=== PATIENT | male | born 1980 | race Caucasian/White ===

== ENCOUNTER 2016-10-03 12:52 | Emergency (ER) | payer OTHER ==
[2016-10-03] MEDS ORDERED: ONDANSETRON 4MG/2ML VIAL (J2405) As Ordered ONE (13:14)
[2016-10-03 13:58] LABS: ALBUMIN 4.3 GM/DL (3.2-5.2); ALBUMIN/GLOBULIN RATIO 1.13 (1.00-1.93); ALKALINE PHOSPHATASE 97 U/L (45-117); ALT/SGPT 40 U/L (12-78); ANION GAP 9 MEQ/L (8-16); AST/SGOT 19 U/L (15-37); BILIRUBIN,DIRECT 0.1 MG/DL (0.0-0.2); BILIRUBIN,TOTAL 0.6 MG/DL (0.2-1.0); BLOOD UREA NITROGEN 24 MG/DL (7-18); CALCIUM LEVEL 8.9 MG/DL (8.5-10.1); CARBON DIOXIDE LEVEL 26 MEQ/L (21-32); CHLORIDE LEVEL 107 MEQ/L (98-107); GLOMERULAR FILTRATION RATE > 60.0 (>60); GLUCOSE, FASTING 105 MG/DL (70-105); POTASSIUM SERUM 4.3 MEQ/L (3.5-5.1); SODIUM LEVEL 142 MEQ/L (136-145); TOTAL PROTEIN 8.1 GM/DL (6.4-8.2)
[2016-10-03 14:16] LABS: BASO % 0.1 % (0.0-1.0); EOS # 0.1 K/mm3 (0.0-0.50); EOS % 1.1 % (0.0-3.0); LARGE UNSTAINED CELL # 0.1 K/mm3 (0.0-0.4); LARGE UNSTAINED CELL % 0.5 % (0.0-4.0); LYMPH # 0.6 K/mm3 (1.5-4.5); LYMPH % 4.5 % (24.0-44.0); MEAN CORPUSCULAR HEMOGLOBIN 33.3 pg (27.0-33.0); MEAN CORPUSCULAR HGB CONC 34.2 g/dl (32.0-36.5); MEAN CORPUSCULAR VOLUME 97.4 fl (80.0-96.0); MONO # 0.6 K/mm3 (0.0-0.8); NEUTROPHILS # 10.7 K/mm3 (1.8-7.7); NEUTROPHILS % 88.8 % (36.0-66.0); PLATELET COUNT, AUTOMATED 221 k/mm3 (150-450); RED CELL DISTRIBUTION WIDTH 12.1 % (11.5-14.5)
[2016-10-03] MEDS ORDERED: ISOVUE-370 76% 100ML VIAL (Q9967) As Ordered ONE (15:01)
--- NOTE | 2016-10-03 15:30 | REP ---
Clinical: Abdominal pain. Technique: Axial contrast enhanced images from the lung bases to the pubic symphysis using 100 ml Isovue 370 intravenous contrast material with coronal and sagittal re-formations. Findings: Lung bases clear. Visualized heart and pericardium normal. Liver, spleen, pancreas, gallbladder, bilateral adrenal glands and kidneys are normal. The enteric system is without obstruction or definite acute inflammatory process. Mild fluid-filled loops of small bowel and ascending colon may reflect a mild enterocolitis. Pelvis demonstrates normal bladder and age appropriate prostate/seminal vesicles. No ascites. Small fat containing inguinal hernias noted. No adenopathy. Vasculature normal. Surrounding musculoskeletal structures intact. Impression: Cannot exclude mild enterocolitis. Small fat containing inguinal hernias. Signed by Yon Kathleen MD 10/03/2016 03:21 P
--- NOTE | 2016-10-03 16:24 | EDDOCDS ---
Physician Documentation [facility] Name: Ramirez Winston Age: 36 yrs Sex: Male : 1980 Arrival Date: 10/03/2016 Time: 12:52 Bed I8 / 16 Private MD: Disposition: 10/03/16 16:07 Discharged to Home/Self Care. Impression: Nausea and vomiting. - Condition is Stable. - Discharge Instructions: Nausea and Vomiting. - Prescriptions for ZOFRAN ODT 4 mg - dissolve 1 tablet by ORAL route 4 times per day As needed do not chew, do not swallow whole; 10 tablet. - Medication Reconciliation, Local Pharmacy Hours form. - Follow up: COLTON Morrell; When: 1 - 2 days; Reason: Recheck today's complaints. - Problem is new. - Symptoms have improved. - Notes: You were seen in the ED for nausea and vomiting. Bloodwork showed no acute findings. CT scan showed possible enterocolitis and small inguinal hernias but no other acute abnormalilities. You were treated and improved with IV fluids and medications. As you are feeling better you may return home. Continue to encourage clear liquids. You may take Zofran as needed for nausea. Advance your diet as tolerated, and call your primary doctor at [facility] to arrange to be seen tomorrow for a recheck. Return to the ED for any worsening abdominal pain, fever, inability to tolerate oral foods or liquids or any other concerns. Historical: - Allergies: no known allergies; - Home Meds: 1. none - PMHx: none; - PSHx: none; - Social history: Smoking status: Patient states was never smoker of tobacco. Patient/guardian denies using alcohol, street drugs, No barriers to communication noted, The patient speaks fluent Maltese, Speaks appropriately for age. - Family history: Not pertinent. - : The pt / caregiver states he / she is not on anticoagulants. Home medication list is obtained from the patient. - Exposure Risk Screening:: None identified. Vital Signs: 10/03 12:54 BP 146 / 69; Pulse 89; Resp 16; Temp 98.2(O); Pulse Ox 100% on R/A; Weight 97.52 kg / lr2 214.99 lbs (R); Height 6 ft. 2 in. (187.96 cm) (R); Pain 5/10; 16:22 BP 126 / 78; Pulse 78; Resp 18; Temp 98(T); Pulse Ox 99% on R/A; Pain 0/10; rs3 12:54 Body Mass Index 27.60 (97.52 kg, 187.96 cm) lr2 MDM: 13:12 IV Saline Lock ordered. br1 13:12 NS 0.9% 1000 ml IV at bolus once ordered. br1 13:12 Ondansetron 4 mg IVP once ordered. br1 13:14 CBC with Diff Ordered. EDMS 13:14 BMP Ordered. EDMS 13:14 Liver Profile Ordered. EDMS 13:14 Lipase Ordered. EDMS 14:38 CBC with Diff Reviewed. br1 14:38 BMP Reviewed. br1 14:38 Liver Profile Reviewed. br1 14:38 Lipase Reviewed. br1 14:40 CT ABD & PELVIS: IV Contrast Only Ordered. EDMS 15:01 NS 0.9% 1000 ml IV at bolus once ordered. br1 15:24 Fluid Challenge ordered. br1 16:16 Financial registration complete. zo 16:17 [facility] Payment Agreement was scanned into [employer] and attached to record. zo Administered Medications: 13:29 Drug: NS 0.9% 1000 ml [sodium chloride 0.9 % intravenous solution] Route: IV; Rate: jjr bolus; Site: left antecubital; 14:30 Follow up: IV Status: Completed infusion; IV Intake: 1000ml jjr 15:26 Follow up: IV Status: Completed infusion rs3 13:29 Drug: Ondansetron 4 mg [ondansetron HCl 2 mg/mL intravenous solution (2 mL)] Route: jjr IVP; Site: left antecubital; 15:26 Drug: NS 0.9% 1000 ml [sodium chloride 0.9 % intravenous solution] Route: IV; Rate: rs3 bolus; Site: left antecubital; Signatures: Dispatcher [employer] EDMS Fred Velasco Brian, MD MD br1 Flower Caldera RN RN rs3 Cheryl Howard RN RN ttb Jaky You RN jjr The chart was reviewed and I authenticate all verbal orders and agree with the evaluation and treatment provided.Attachments: 16:17 [facility] Payment Agreement zo MTDD
--- NOTE | 2016-10-03 16:24 | EDDOCDS ---
Nurse's Notes [facility] Name: Ramirez Winston Age: 36 yrs Sex: Male : 1980 Arrival Date: 10/03/2016 Time: 12:52 Bed I8 / 16 Private MD: Diagnosis: Nausea and vomiting Presentation: 10/03 12:57 Presenting complaint: Patient states: abd cramping, n/v/d x3 hours. Adult Sepsis ttb Screening: The patient does not have new or worsening altered mentation. Patient's respiratory rate is less than 22. Systolic blood pressure is greater than 100. Patient has a qSOFA score of 0- Negative Sepsis Screen. Suicide/Homicide risk assessment- the patient denies having any suicidal and/or homicidal ideations and does not present with any other emotional, behavioral or mental health complaints. 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 Transition of care: patient was not received from another setting of care. 12:57 Acuity: KRISTY Level 3 ttb 12:57 Method Of Arrival: Walkin/Carried/Asstd ttb Triage Assessment: 12:58 General: Appears uncomfortable, well nourished, Behavior is anxious, appropriate for ttb age, cooperative, pleasant, restless. Pain: Location: abd cramping 8/10. HIV screening NA for this visit Offered previously. Neurological: Level of Consciousness is awake, alert. Cardiovascular: Chest pain is denied. Respiratory: No deficits noted. GI: Reports cramping, diarrhea, lower abdominal pain, upper abd pain, nausea, vomiting. Derm: Skin is normal. Injury Description: No known injury. Historical: - Allergies: no known allergies; - Home Meds: 1. none - PMHx: none; - PSHx: none; - Social history: Smoking status: Patient states was never smoker of tobacco. Patient/guardian denies using alcohol, street drugs, No barriers to communication noted, The patient speaks fluent Tristanian, Speaks appropriately for age. - Family history: Not pertinent. - : The pt / caregiver states he / she is not on anticoagulants. Home medication list is obtained from the patient. - Exposure Risk Screening:: None identified. Screenin:31 Screening information is obtained from the patient. Fall risk: No risks identified. jjr Assistance ADL's: requires no assistance with activities of daily living. Abuse/DV Screen: The patient / caregiver reports he/she is: not in a situation that causes fear, pain or injury. Nutritional screening: No deficits noted. Advance Directives: There is no active DNR order. home support is adequate. Assessment: 13:30 General: Appears uncomfortable, well nourished, well groomed, Behavior is appropriate jjr for age. Pain: Location: abdomen Quality of pain is described as crampy. Neurological: No deficits noted. Respiratory: No deficits noted. GI: Abdomen is non- distended Bowel sounds present X 4 quads. Abd is soft X 4 quads Reports cramping, nausea, vomiting. Derm: Skin is dry, Skin is pale, Skin temperature is warm. 13:31 General: pt actively dry heaving on arrival to treatment room. jjr 14:21 General: Appears in no apparent distress, comfortable, Behavior is appropriate for age, dy cooperative, RESTING ON STRETCHER WITH EYES CLOSED. . 15:27 General: Appears in no apparent distress, Behavior is appropriate for age, cooperative, rs3 returned from CT. tolerated well. denies of nausea/vomiting. family at bedside. 2nd IVF NS bolus started. 16:20 Reassessment: Patient appears in no apparent distress at this time. Patient denies pain rs3 at this time. Patient states feeling better. Patient states symptoms have improved. Vital Signs: 12:54 BP 146 / 69; Pulse 89; Resp 16; Temp 98.2(O); Pulse Ox 100% on R/A; Weight 97.52 kg lr2 (R); Height 6 ft. 2 in. (187.96 cm) (R); Pain 5/10; 16:22 BP 126 / 78; Pulse 78; Resp 18; Temp 98(T); Pulse Ox 99% on R/A; Pain 0/10; rs3 12:54 Body Mass Index 27.60 (97.52 kg, 187.96 cm) lr2 Vitals: 12:54 Log In Time: October 03, 2016 at 12:52. lr2 ED Course: 12:53 Patient visited by Mayi Fuentes. lr2 12:53 Patient moved to Waiting lr2 12:55 Patient moved to Pre RCE lr2 12:57 Triage Initiated ttb 12:59 Patient visited by Cheryl Howard RN. ttb 13:03 Jeffry Fernandez MD is Attending Physician. br1 13:03 Patient moved to I9 / 22 mlb1 13:05 Patient moved to I8 / 16 mlb1 13:11 Patient visited by Jeffry Fernandez MD. br1 13:29 Lipase Sent. jjr 13:29 Liver Profile Sent. jjr 13:29 BMP Sent. jjr 13:30 CBC with Diff Sent. jjr 13:31 The patient / caregiver is instructed regarding the plan of care and ED course. jjr 13:31 Inserted saline lock: 20 gauge in left antecubital area and blood collected. Labs jjr drawn. (by ED staff). Sent per order to lab. 13:32 Patient visited by Jaky You, RN. jjr 14:21 Patient visited by Timi Lopez, RN. dy 15:27 Patient visited by Flower Caldera,CHRISTINE. rs3 15:57 Patient visited by Jeffry Fernandez MD. br1 16:03 CT ABD & PELVIS: IV Contrast Only Returned. EDMS 16:06 [facility] [place] Physician. br1 16:17 [facility] Payment Agreement was scanned into [employer] and attached to record. zo 16:20 Discontinued lock bleeding controlled, pressure dressing applied, No redness/swelling rs3 at site. No procedures done that require assistance. Administered Medications: 13:29 Drug: NS 0.9% 1000 ml [sodium chloride 0.9 % intravenous solution] Route: IV; Rate: jjr bolus; Site: left antecubital; 14:30 Follow up: IV Status: Completed infusion; IV Intake: 1000ml jjr 15:26 Follow up: IV Status: Completed infusion rs3 13:29 Drug: Ondansetron 4 mg [ondansetron HCl 2 mg/mL intravenous solution (2 mL)] Route: jjr IVP; Site: left antecubital; 15:26 Drug: NS 0.9% 1000 ml [sodium chloride 0.9 % intravenous solution] Route: IV; Rate: rs3 bolus; Site: left antecubital; Intake: 14:30 IV: 1000.00ml; Total: 1000.00ml. jjr Order Results: Lab Order: CBC with Diff; SPEC'M 10/03/16 13:26 Test: WHITE BLOOD COUNT; Value: 12.0; Range: 4.0-10.0; Abnormal: Above high normal; Units: K/mm3; Status: F Test: RED BLOOD COUNT; Value: 4.98; Range: 4.30-6.10; Units: M/mm3; Status: F Test: HEMOGLOBIN; Value: 16.6; Range: 14.0-18.0; Units: g/dl; Status: F Test: HEMATOCRIT; Value: 48.5; Range: 42.0-52.0; Units: %; Status: F Test: MEAN CORPUSCULAR VOLUME; Value: 97.4; Range: 80.0-96.0; Abnormal: Above high normal; Units: fl; Status: F Test: MEAN CORPUSCULAR HEMOGLOBIN; Value: 33.3; Range: 27.0-33.0; Abnormal: Above high normal; Units: pg; Status: F Test: MEAN CORPUSCULAR HGB CONC; Value: 34.2; Range: 32.0-36.5; Units: g/dl; Status: F Test: RED CELL DISTRIBUTION WIDTH; Value: 12.1; Range: 11.5-14.5; Units: %; Status: F Test: PLATELET COUNT, AUTOMATED; Value: 221; Range: 150-450; Units: k/mm3; Status: F Test: NEUTROPHILS %; Value: 88.8; Range: 36.0-66.0; Abnormal: Above high normal; Units: %; Status: F Test: LYMPH %; Value: 4.5; Range: 24.0-44.0; Abnormal: Below low normal; Units: %; Status: F Test: MONO %; Value: 5.0; Range: 0.0-5.0; Units: %; Status: F Test: EOS %; Value: 1.1; Range: 0.0-3.0; Units: %; Status: F Test: BASO %; Value: 0.1; Range: 0.0-1.0; Units: %; Status: F Test: LARGE UNSTAINED CELL %; Value: 0.5; Range: 0.0-4.0; Units: %; Status: F Test: NEUTROPHILS #; Value: 10.7; Range: 1.8-7.7; Abnormal: Above high normal; Units: K/mm3; Status: F Test: LYMPH #; Value: 0.6; Range: 1.5-4.5; Abnormal: Below low normal; Units: K/mm3; Status: F Test: MONO #; Value: 0.6; Range: 0.0-0.8; Units: K/mm3; Status: F Test: EOS #; Value: 0.1; Range: 0.0-0.50; Units: K/mm3; Status: F Test: BASO #; Value: 0.0; Range: 0.0-0.2; Units: K/mm3; Status: F Test: LARGE UNSTAINED CELL #; Value: 0.1; Range: 0.0-0.4; Units: K/mm3; Status: F Lab Order: [facility]; SPEC'M 10/03/16 13:26 Test: GLUCOSE, FASTING; Value: 105; Range: 70-105; Units: MG/DL; Status: F Test: BLOOD UREA NITROGEN; Value: 24; Range: 7-18; Abnormal: Above high normal; Units: MG/DL; Status: F Test: CREATININE FOR GFR; Value: 1.20; Range: 0.70-1.30; Units: MG/DL; Status: F Test: GLOMERULAR FILTRATION RATE; Value: > 60.0; Range: >60; Status: F Test: SODIUM LEVEL; Value: 142; Range: 136-145; Units: MEQ/L; Status: F Test: POTASSIUM SERUM; Value: 4.3; Range: 3.5-5.1; Units: MEQ/L; Status: F Test: CHLORIDE LEVEL; Value: 107; Range: 98-107; Units: MEQ/L; Status: F Test: CARBON DIOXIDE LEVEL; Value: 26; Range: 21-32; Units: MEQ/L; Status: F Test: ANION GAP; Value: 9; Range: 8-16; Units: MEQ/L; Status: F Test: CALCIUM LEVEL; Value: 8.9; Range: 8.5-10.1; Units: MG/DL; Status: F Test Note: ; Units are mL/min/1.73 m2 Chronic Kidney Disease Staging per NKF: Stage I & II GFR >=60 Normal to Mildly Decreased Stage III GFR 30-59 Moderately Decreased Stage IV GFR 15-29 Severely Decreased Stage V GFR <15 Very Little GFR Left ESRD GFR <15 on GROCERY CADDY Lab Order: Liver Profile; SPEC'M 10/03/16 13:26 Test: AST/SGOT; Value: 19; Range: 15-37; Units: U/L; Status: F Test: ALT/SGPT; Value: 40; Range: 12-78; Units: U/L; Status: F Test: ALKALINE PHOSPHATASE; Value: 97; Range: 45-117; Units: U/L; Status: F Test: BILIRUBIN,TOTAL; Value: 0.6; Range: 0.2-1.0; Units: MG/DL; Status: F Test: BILIRUBIN,DIRECT; Value: 0.1; Range: 0.0-0.2; Units: MG/DL; Status: F Test: TOTAL PROTEIN; Value: 8.1; Range: 6.4-8.2; Units: GM/DL; Status: F Test: ALBUMIN; Value: 4.3; Range: 3.2-5.2; Units: GM/DL; Status: F Test: ALBUMIN/GLOBULIN RATIO; Value: 1.13; Range: 1.00-1.93; Status: F Lab Order: Lipase; SPEC'M 10/03/16 13:26 Test: LIPASE; Value: 224; Range: 73-393; Units: U/L; Status: F Radiology Order: CT ABD & PELVIS: IV Contrast Only Test: CT ABD & PELVIS: IV Contrast Only REASON FOR EXAMINATION: Abdomen Pain; Clinical: Abdominal pain.; ; Technique: Axial contrast enhanced images from the lung bases to the pubic; symphysis using 100 ml Isovue 370 intravenous contrast material with coronal and; sagittal re-formations.; ; Findings:; Lung bases clear. Visualized heart and pericardium normal.; ; Liver, spleen, pancreas, gallbladder, bilateral adrenal glands and kidneys are; normal. The enteric system is without obstruction or definite acute inflammatory; process. Mild fluid-filled loops of small bowel and ascending colon may reflect; a mild enterocolitis. Pelvis demonstrates normal bladder and age appropriate; prostate/seminal vesicles. No ascites. Small fat containing inguinal hernias; noted. No adenopathy. Vasculature normal. Surrounding musculoskeletal; structures intact.; ; Impression:; Cannot exclude mild enterocolitis.; Small fat containing inguinal hernias.; ; ; Signed by; Yon Kathleen MD 10/03/2016 03:21 P; Outcome: 16:07 Discharge ordered by Provider. br1 16:21 Discharge Assessment: patient administered narcotics - no. The following High Risk rs3 Discharge criteria are identified: None. Discharged to home with family. Condition: stable. Instructed on discharge instructions, follow up and referral plans. medication usage, Demonstrated understanding of instructions, medications, Pt was receptive of discharge instructions/ teaching. Prescriptions given X 1. No special radiology studies were completed. Property :Personal belongings accompany Pt. 16:22 Patient left the ED. rs3 Signatures: Dispatcher [employer] EDMS Timi Lopez, RN RN Miguel A White RN RN mlb1 Fred Velasco Brian, MD MD br1 Jaky You RN RN Flower Bender RN RN rs3 Cheryl Howard RN RN ttb Ross, Laura lr2 JAIT
--- NOTE | 2016-10-05 17:24 | EDDOCDS ---
Physician Documentation [facility] Name: Ramirez Winston Age: 36 yrs Sex: Male : 1980 Arrival Date: 10/03/2016 Time: 12:52 Bed I8 / 16 Private MD: Disposition: 10/03/16 16:07 Discharged to Home/Self Care. Impression: Nausea and vomiting. - Condition is Stable. - Discharge Instructions: Nausea and Vomiting. - Prescriptions for ZOFRAN ODT 4 mg - dissolve 1 tablet by ORAL route 4 times per day As needed do not chew, do not swallow whole; 10 tablet. - Medication Reconciliation, Local Pharmacy Hours form. - Follow up: COLTON Morrell; When: 1 - 2 days; Reason: Recheck today's complaints. - Problem is new. - Symptoms have improved. - Notes: You were seen in the ED for nausea and vomiting. Bloodwork showed no acute findings. CT scan showed possible enterocolitis and small inguinal hernias but no other acute abnormalilities. You were treated and improved with IV fluids and medications. As you are feeling better you may return home. Continue to encourage clear liquids. You may take Zofran as needed for nausea. Advance your diet as tolerated, and call your primary doctor at [place] to arrange to be seen tomorrow for a recheck. Return to the ED for any worsening abdominal pain, fever, inability to tolerate oral foods or liquids or any other concerns. Historical: - Allergies: no known allergies; - Home Meds: 1. none - PMHx: none; - PSHx: none; - Social history: Smoking status: Patient states was never smoker of tobacco. Patient/guardian denies using alcohol, street drugs, No barriers to communication noted, The patient speaks fluent Sami, Speaks appropriately for age. - Family history: Not pertinent. - : The pt / caregiver states he / she is not on anticoagulants. Home medication list is obtained from the patient. - Exposure Risk Screening:: None identified. Vital Signs: 10/03 12:54 BP 146 / 69; Pulse 89; Resp 16; Temp 98.2(O); Pulse Ox 100% on R/A; Weight 97.52 kg / lr2 214.99 lbs (R); Height 6 ft. 2 in. (187.96 cm) (R); Pain 5/10; 16:22 BP 126 / 78; Pulse 78; Resp 18; Temp 98(T); Pulse Ox 99% on R/A; Pain 0/10; rs3 12:54 Body Mass Index 27.60 (97.52 kg, 187.96 cm) lr2 MDM: 13:12 IV Saline Lock ordered. br1 13:12 NS 0.9% 1000 ml IV at bolus once ordered. br1 13:12 Ondansetron 4 mg IVP once ordered. br1 13:14 CBC with Diff Ordered. EDMS 13:14 BMP Ordered. EDMS 13:14 Liver Profile Ordered. EDMS 13:14 Lipase Ordered. EDMS 14:38 CBC with Diff Reviewed. br1 14:38 BMP Reviewed. br1 14:38 Liver Profile Reviewed. br1 14:38 Lipase Reviewed. br1 14:40 CT ABD & PELVIS: IV Contrast Only Ordered. EDMS 15:01 NS 0.9% 1000 ml IV at bolus once ordered. br1 15:24 Fluid Challenge ordered. br1 16:16 Financial registration complete. zo 16:17 [facility] Payment Agreement was scanned into [employer] and attached to record. zo 10/04 09:37 T-Sheet-- Draft Copy was scanned into [employer] and attached to record. gb Administered Medications: 10/03 13:29 Drug: NS 0.9% 1000 ml [sodium chloride 0.9 % intravenous solution] Route: IV; Rate: jjr bolus; Site: left antecubital; 14:30 Follow up: IV Status: Completed infusion; IV Intake: 1000ml jjr 15:26 Follow up: IV Status: Completed infusion rs3 13:29 Drug: Ondansetron 4 mg [ondansetron HCl 2 mg/mL intravenous solution (2 mL)] Route: jjr IVP; Site: left antecubital; 15:26 Drug: NS 0.9% 1000 ml [sodium chloride 0.9 % intravenous solution] Route: IV; Rate: rs3 bolus; Site: left antecubital; Signatures: Dispatcher [employer] EDMS Bridgette Patterson, Ty Reg gb Fred Velasco Brian, MD MD br1 Flower Caldera RN RN rs3 Lee, Cheryl, RN Jaky Hernandez RN jjr The chart was reviewed and I authenticate all verbal orders and agree with the evaluation and treatment provided.Attachments: 16:17 [facility] [place] Agreement zo 10/04 09:37 T-Sheet-- Draft Copy gb Chart Complete MTDD
--- NOTE | 2016-10-05 17:24 | EDDOCDS ---
Nurse's Notes [facility] Name: Ramirez Winston Age: 36 yrs Sex: Male : 1980 Arrival Date: 10/03/2016 Time: 12:52 Bed I8 / 16 Private MD: Diagnosis: Nausea and vomiting Presentation: 10/03 12:57 Presenting complaint: Patient states: abd cramping, n/v/d x3 hours. Adult Sepsis ttb Screening: The patient does not have new or worsening altered mentation. Patient's respiratory rate is less than 22. Systolic blood pressure is greater than 100. Patient has a qSOFA score of 0- Negative Sepsis Screen. Suicide/Homicide risk assessment- the patient denies having any suicidal and/or homicidal ideations and does not present with any other emotional, behavioral or mental health complaints. 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 Transition of care: patient was not received from another setting of care. 12:57 Acuity: KRISTY Level 3 ttb 12:57 Method Of Arrival: Walkin/Carried/Asstd ttb Triage Assessment: 12:58 General: Appears uncomfortable, well nourished, Behavior is anxious, appropriate for ttb age, cooperative, pleasant, restless. Pain: Location: abd cramping 8/10. HIV screening NA for this visit Offered previously. Neurological: Level of Consciousness is awake, alert. Cardiovascular: Chest pain is denied. Respiratory: No deficits noted. GI: Reports cramping, diarrhea, lower abdominal pain, upper abd pain, nausea, vomiting. Derm: Skin is normal. Injury Description: No known injury. Historical: - Allergies: no known allergies; - Home Meds: 1. none - PMHx: none; - PSHx: none; - Social history: Smoking status: Patient states was never smoker of tobacco. Patient/guardian denies using alcohol, street drugs, No barriers to communication noted, The patient speaks fluent Togolese, Speaks appropriately for age. - Family history: Not pertinent. - : The pt / caregiver states he / she is not on anticoagulants. Home medication list is obtained from the patient. - Exposure Risk Screening:: None identified. Screenin:31 Screening information is obtained from the patient. Fall risk: No risks identified. jjr Assistance ADL's: requires no assistance with activities of daily living. Abuse/DV Screen: The patient / caregiver reports he/she is: not in a situation that causes fear, pain or injury. Nutritional screening: No deficits noted. Advance Directives: There is no active DNR order. home support is adequate. Assessment: 13:30 General: Appears uncomfortable, well nourished, well groomed, Behavior is appropriate jjr for age. Pain: Location: abdomen Quality of pain is described as crampy. Neurological: No deficits noted. Respiratory: No deficits noted. GI: Abdomen is non- distended Bowel sounds present X 4 quads. Abd is soft X 4 quads Reports cramping, nausea, vomiting. Derm: Skin is dry, Skin is pale, Skin temperature is warm. 13:31 General: pt actively dry heaving on arrival to treatment room. jjr 14:21 General: Appears in no apparent distress, comfortable, Behavior is appropriate for age, dy cooperative, RESTING ON STRETCHER WITH EYES CLOSED. . 15:27 General: Appears in no apparent distress, Behavior is appropriate for age, cooperative, rs3 returned from CT. tolerated well. denies of nausea/vomiting. family at bedside. 2nd IVF NS bolus started. 16:20 Reassessment: Patient appears in no apparent distress at this time. Patient denies pain rs3 at this time. Patient states feeling better. Patient states symptoms have improved. Vital Signs: 12:54 BP 146 / 69; Pulse 89; Resp 16; Temp 98.2(O); Pulse Ox 100% on R/A; Weight 97.52 kg lr2 (R); Height 6 ft. 2 in. (187.96 cm) (R); Pain 5/10; 16:22 BP 126 / 78; Pulse 78; Resp 18; Temp 98(T); Pulse Ox 99% on R/A; Pain 0/10; rs3 12:54 Body Mass Index 27.60 (97.52 kg, 187.96 cm) lr2 Vitals: 12:54 Log In Time: October 03, 2016 at 12:52. lr2 ED Course: 12:53 Patient visited by Mayi Fuentes. lr2 12:53 Patient moved to Waiting lr2 12:55 Patient moved to Pre RCE lr2 12:57 Triage Initiated ttb 12:59 Patient visited by Cheryl Howard RN. ttb 13:03 Jeffry Fernandez MD is Attending Physician. br1 13:03 Patient moved to I9 / 22 mlb1 13:05 Patient moved to I8 / 16 mlb1 13:11 Patient visited by Jeffry Fernandez MD. br1 13:29 Lipase Sent. jjr 13:29 Liver Profile Sent. jjr 13:29 BMP Sent. jjr 13:30 CBC with Diff Sent. jjr 13:31 The patient / caregiver is instructed regarding the plan of care and ED course. jjr 13:31 Inserted saline lock: 20 gauge in left antecubital area and blood collected. Labs jjr drawn. (by ED staff). Sent per order to lab. 13:32 Patient visited by Jaky You, RN. jjr 14:21 Patient visited by Timi Lopez, RN. dy 15:27 Patient visited by Flower Caldera,CHRISTINE. rs3 15:57 Patient visited by Jeffry Fernandez MD. br1 16:03 CT ABD & PELVIS: IV Contrast Only Returned. EDMS 16:06 Petros [facility] is Referral Physician. br1 16:17 [facility] Payment Agreement was scanned into [employer] and attached to record. zo 16:20 Discontinued lock bleeding controlled, pressure dressing applied, No redness/swelling rs3 at site. No procedures done that require assistance. 16:24 Patient name changed from Ramirez\Miranda\\S\Card\S\ to Ramirez\Miranda\ \S\Card. EDMS 10/04 09:37 T-Sheet-- Draft Copy was scanned into [employer] and attached to record. gb Administered Medications: 10/03 13:29 Drug: NS 0.9% 1000 ml [sodium chloride 0.9 % intravenous solution] Route: IV; Rate: jjr bolus; Site: left antecubital; 14:30 Follow up: IV Status: Completed infusion; IV Intake: 1000ml jjr 15:26 Follow up: IV Status: Completed infusion rs3 13:29 Drug: Ondansetron 4 mg [ondansetron HCl 2 mg/mL intravenous solution (2 mL)] Route: jjr IVP; Site: left antecubital; 15:26 Drug: NS 0.9% 1000 ml [sodium chloride 0.9 % intravenous solution] Route: IV; Rate: rs3 bolus; Site: left antecubital; Intake: 14:30 IV: 1000.00ml; Total: 1000.00ml. jjr Order Results: Lab Order: CBC with Diff; SPEC'M 10/03/16 13:26 Test: WHITE BLOOD COUNT; Value: 12.0; Range: 4.0-10.0; Abnormal: Above high normal; Units: K/mm3; Status: F Test: RED BLOOD COUNT; Value: 4.98; Range: 4.30-6.10; Units: M/mm3; Status: F Test: HEMOGLOBIN; Value: 16.6; Range: 14.0-18.0; Units: g/dl; Status: F Test: HEMATOCRIT; Value: 48.5; Range: 42.0-52.0; Units: %; Status: F Test: MEAN CORPUSCULAR VOLUME; Value: 97.4; Range: 80.0-96.0; Abnormal: Above high normal; Units: fl; Status: F Test: MEAN CORPUSCULAR HEMOGLOBIN; Value: 33.3; Range: 27.0-33.0; Abnormal: Above high normal; Units: pg; Status: F Test: MEAN CORPUSCULAR HGB CONC; Value: 34.2; Range: 32.0-36.5; Units: g/dl; Status: F Test: RED CELL DISTRIBUTION WIDTH; Value: 12.1; Range: 11.5-14.5; Units: %; Status: F Test: PLATELET COUNT, AUTOMATED; Value: 221; Range: 150-450; Units: k/mm3; Status: F Test: NEUTROPHILS %; Value: 88.8; Range: 36.0-66.0; Abnormal: Above high normal; Units: %; Status: F Test: LYMPH %; Value: 4.5; Range: 24.0-44.0; Abnormal: Below low normal; Units: %; Status: F Test: MONO %; Value: 5.0; Range: 0.0-5.0; Units: %; Status: F Test: EOS %; Value: 1.1; Range: 0.0-3.0; Units: %; Status: F Test: BASO %; Value: 0.1; Range: 0.0-1.0; Units: %; Status: F Test: LARGE UNSTAINED CELL %; Value: 0.5; Range: 0.0-4.0; Units: %; Status: F Test: NEUTROPHILS #; Value: 10.7; Range: 1.8-7.7; Abnormal: Above high normal; Units: K/mm3; Status: F Test: LYMPH #; Value: 0.6; Range: 1.5-4.5; Abnormal: Below low normal; Units: K/mm3; Status: F Test: MONO #; Value: 0.6; Range: 0.0-0.8; Units: K/mm3; Status: F Test: EOS #; Value: 0.1; Range: 0.0-0.50; Units: K/mm3; Status: F Test: BASO #; Value: 0.0; Range: 0.0-0.2; Units: K/mm3; Status: F Test: LARGE UNSTAINED CELL #; Value: 0.1; Range: 0.0-0.4; Units: K/mm3; Status: F Lab Order: [facility]; SPEC'M 10/03/16 13:26 Test: GLUCOSE, FASTING; Value: 105; Range: 70-105; Units: MG/DL; Status: F Test: BLOOD UREA NITROGEN; Value: 24; Range: 7-18; Abnormal: Above high normal; Units: MG/DL; Status: F Test: CREATININE FOR GFR; Value: 1.20; Range: 0.70-1.30; Units: MG/DL; Status: F Test: GLOMERULAR FILTRATION RATE; Value: > 60.0; Range: >60; Status: F Test: SODIUM LEVEL; Value: 142; Range: 136-145; Units: MEQ/L; Status: F Test: POTASSIUM SERUM; Value: 4.3; Range: 3.5-5.1; Units: MEQ/L; Status: F Test: CHLORIDE LEVEL; Value: 107; Range: 98-107; Units: MEQ/L; Status: F Test: CARBON DIOXIDE LEVEL; Value: 26; Range: 21-32; Units: MEQ/L; Status: F Test: ANION GAP; Value: 9; Range: 8-16; Units: MEQ/L; Status: F Test: CALCIUM LEVEL; Value: 8.9; Range: 8.5-10.1; Units: MG/DL; Status: F Test Note: ; Units are mL/min/1.73 m2 Chronic Kidney Disease Staging per NKF: Stage I & II GFR >=60 Normal to Mildly Decreased Stage III GFR 30-59 Moderately Decreased Stage IV GFR 15-29 Severely Decreased Stage V GFR <15 Very Little GFR Left ESRD GFR <15 on [facility] Lab Order: Liver Profile; SPEC'M 10/03/16 13:26 Test: AST/SGOT; Value: 19; Range: 15-37; Units: U/L; Status: F Test: ALT/SGPT; Value: 40; Range: 12-78; Units: U/L; Status: F Test: ALKALINE PHOSPHATASE; Value: 97; Range: 45-117; Units: U/L; Status: F Test: BILIRUBIN,TOTAL; Value: 0.6; Range: 0.2-1.0; Units: MG/DL; Status: F Test: BILIRUBIN,DIRECT; Value: 0.1; Range: 0.0-0.2; Units: MG/DL; Status: F Test: TOTAL PROTEIN; Value: 8.1; Range: 6.4-8.2; Units: GM/DL; Status: F Test: ALBUMIN; Value: 4.3; Range: 3.2-5.2; Units: GM/DL; Status: F Test: ALBUMIN/GLOBULIN RATIO; Value: 1.13; Range: 1.00-1.93; Status: F Lab Order: Lipase; SPEC'M 10/03/16 13:26 Test: LIPASE; Value: 224; Range: 73-393; Units: U/L; Status: F Radiology Order: CT ABD & PELVIS: IV Contrast Only Test: CT ABD & PELVIS: IV Contrast Only REASON FOR EXAMINATION: Abdomen Pain; Clinical: Abdominal pain.; ; Technique: Axial contrast enhanced images from the lung bases to the pubic; symphysis using 100 ml Isovue 370 intravenous contrast material with coronal and; sagittal re-formations.; ; Findings:; Lung bases clear. Visualized heart and pericardium normal.; ; Liver, spleen, pancreas, gallbladder, bilateral adrenal glands and kidneys are; normal. The enteric system is without obstruction or definite acute inflammatory; process. Mild fluid-filled loops of small bowel and ascending colon may reflect; a mild enterocolitis. Pelvis demonstrates normal bladder and age appropriate; prostate/seminal vesicles. No ascites. Small fat containing inguinal hernias; noted. No adenopathy. Vasculature normal. Surrounding musculoskeletal; structures intact.; ; Impression:; Cannot exclude mild enterocolitis.; Small fat containing inguinal hernias.; ; ; Signed by; Yon Kathleen MD 10/03/2016 03:21 P; Outcome: 16:07 Discharge ordered by Provider. br1 16:21 Discharge Assessment: patient administered narcotics - no. The following High Risk rs3 Discharge criteria are identified: None. Discharged to home with family. Condition: stable. Instructed on discharge instructions, follow up and referral plans. medication usage, Demonstrated understanding of instructions, medications, Pt was receptive of discharge instructions/ teaching. Prescriptions given X 1. No special radiology studies were completed. Property :Personal belongings accompany Pt. 16:22 Patient left the ED. rs3 Signatures: Dispatcher [employer] EDMS Bridgette Patterson, Ty Reg Timi Curiel, RN Miguel A Khoury RN RN mlb1 Fred Velasco Brian, MD MD br1 Jaky You RN RN Flower Bender RN RN rs3 Cheryl Howard RN RN ttb Ross, Laura lr2 Chart Complete MTDD
--- NOTE | 2016-10-05 17:24 | EDDOCDS ---
Physician Documentation [facility] Name: Ramirez Winston Age: 36 yrs Sex: Male : 1980 Arrival Date: 10/03/2016 Time: 12:52 Bed I8 / 16 Private MD: Disposition: 10/03/16 16:07 Discharged to Home/Self Care. Impression: Nausea and vomiting. - Condition is Stable. - Discharge Instructions: Nausea and Vomiting. - Prescriptions for ZOFRAN ODT 4 mg - dissolve 1 tablet by ORAL route 4 times per day As needed do not chew, do not swallow whole; 10 tablet. - Medication Reconciliation, Local Pharmacy Hours form. - Follow up: [facility]; When: 1 - 2 days; Reason: Recheck today's complaints. - Problem is new. - Symptoms have improved. - Notes: You were seen in the ED for nausea and vomiting. Bloodwork showed no acute findings. CT scan showed possible enterocolitis and small inguinal hernias but no other acute abnormalilities. You were treated and improved with IV fluids and medications. As you are feeling better you may return home. Continue to encourage clear liquids. You may take Zofran as needed for nausea. Advance your diet as tolerated, and call your primary doctor at [place] to arrange to be seen tomorrow for a recheck. Return to the ED for any worsening abdominal pain, fever, inability to tolerate oral foods or liquids or any other concerns. Historical: - Allergies: no known allergies; - Home Meds: 1. none - PMHx: none; - PSHx: none; - Social history: Smoking status: Patient states was never smoker of tobacco. Patient/guardian denies using alcohol, street drugs, No barriers to communication noted, The patient speaks fluent Kiswahili, Speaks appropriately for age. - Family history: Not pertinent. - : The pt / caregiver states he / she is not on anticoagulants. Home medication list is obtained from the patient. - Exposure Risk Screening:: None identified. Vital Signs: 10/03 12:54 BP 146 / 69; Pulse 89; Resp 16; Temp 98.2(O); Pulse Ox 100% on R/A; Weight 97.52 kg / lr2 214.99 lbs (R); Height 6 ft. 2 in. (187.96 cm) (R); Pain 5/10; 16:22 BP 126 / 78; Pulse 78; Resp 18; Temp 98(T); Pulse Ox 99% on R/A; Pain 0/10; rs3 12:54 Body Mass Index 27.60 (97.52 kg, 187.96 cm) lr2 MDM: 13:12 IV Saline Lock ordered. br1 13:12 NS 0.9% 1000 ml IV at bolus once ordered. br1 13:12 Ondansetron 4 mg IVP once ordered. br1 13:14 CBC with Diff Ordered. EDMS 13:14 BMP Ordered. EDMS 13:14 Liver Profile Ordered. EDMS 13:14 Lipase Ordered. EDMS 14:38 CBC with Diff Reviewed. br1 14:38 BMP Reviewed. br1 14:38 Liver Profile Reviewed. br1 14:38 Lipase Reviewed. br1 14:40 CT ABD & PELVIS: IV Contrast Only Ordered. EDMS 15:01 NS 0.9% 1000 ml IV at bolus once ordered. br1 15:24 Fluid Challenge ordered. br1 16:16 Financial registration complete. zo 16:17 [facility] Payment Agreement was scanned into [employer] and attached to record. zo 10/04 09:37 T-Sheet-- Draft Copy was scanned into [employer] and attached to record. gb Administered Medications: 10/03 13:29 Drug: NS 0.9% 1000 ml [sodium chloride 0.9 % intravenous solution] Route: IV; Rate: jjr bolus; Site: left antecubital; 14:30 Follow up: IV Status: Completed infusion; IV Intake: 1000ml jjr 15:26 Follow up: IV Status: Completed infusion rs3 13:29 Drug: Ondansetron 4 mg [ondansetron HCl 2 mg/mL intravenous solution (2 mL)] Route: jjr IVP; Site: left antecubital; 15:26 Drug: NS 0.9% 1000 ml [sodium chloride 0.9 % intravenous solution] Route: IV; Rate: rs3 bolus; Site: left antecubital; Signatures: Dispatcher [employer] EDMS Bridgette Patterson, Ty Reg gb Fred Velasco Brian, MD MD br1 Flower Caldera RN RN rs3 Lee, Cheryl, RN Jaky Hernandez RN jjr The chart was reviewed and I authenticate all verbal orders and agree with the evaluation and treatment provided.Attachments: 16:17 [facility] [place] zo 10/04 09:37 T-Sheet-- Draft Copy gb Chart Complete MTDD
== END 2016-10-03 16:22 | disposition home or self-care (01) ==
LOC: M ED 12:52
DX: R11.2 Nausea with vomiting, unspecified (principal)
CPT/HCPCS: 36415; 74177; 80048; 80076; 83690; 85025; 96361; 96374; 99284; J2405; Q9967